=== PATIENT | male | born 1960 | race Caucasian/White ===

== ENCOUNTER 2019-05-29 09:40 | Emergency (ER) | payer MEDICAID ==
[2019-05-29] MEDS: IBUPROFEN 600 MG TAB PO (10:01)
== END 2019-05-29 12:03 | disposition home or self-care (01) ==
LOC: FTE 09:40
DX: S72.431A Displaced fracture of medial condyle of right femur, initial encounter for closed fracture (principal); I10 Essential (primary) hypertension; W20.8XXA Other cause of strike by thrown, projected or falling object, initial encounter; Y92.9 Unspecified place or not applicable; Z79.4 Long term (current) use of insulin; Z87.891 Personal history of nicotine dependence
CPT/HCPCS: 73550; 73562; 99283-25